=== PATIENT | female | born 1955 | race Two or more races ===

== ENCOUNTER 2020-06-27 05:23 | Day surgery (SDC) | payer OTHER ==
[~2020-06-27 05:23] MED LIST: ASPIR 8181 MG PO; BEVESPI AEROS10.7 GM IH; IPRAT-ALBUT 0.5-3 ML IH; METFORMIN HCL1000 M2 PO; SIMVASTATIN20 MG PO; SINGULAIR10 MG PO; ZESTRIL10 M1 PO
[2020-06-27] MEDS ORDERED: MACROBID 100 M100 MG PO (10:57)
[2020-06-27] MEDS ORDERED: ULTRACET PO (10:58)
== END 2020-06-27 14:15 | disposition home or self-care (01) ==
LOC: CIR.AMB 05:23
PROVIDERS: ATTEND Obstetrics & Gynecology Gynecology
DX: N81.3 Complete uterovaginal prolapse (principal); Z20.828 Contact with and (suspected) exposure to other viral communicable diseases